=== PATIENT | female | born 1940 | race Caucasian/White ===

== ENCOUNTER 2023-03-29 12:05 | Inpatient (IN) | payer OTHER ==
[~2023-03-29] VITALS: Ht 154.9 cm; Wt 55.3 kg
[2023-03-29 12:05] VITALS: BP_SYST 131; PULSE 76; RESP 18; TEMP 98.2; O2SAT 98
[2023-03-29 13:35] LABS: BASOPHILS # (AUTO) 0.1 K/uL (0.0-0.2); EOSINOPHILS # (AUTO) 0.1 K/uL (0.0-0.4); EOSINOPHILS % (AUTO) 1.7 % (0.0-4.0); HEMATOCRIT 30.9 % (36-48); LYMPHOCYTES # (AUTO) 1.2 K/uL (1.0-5.5); LYMPHOCYTES % (AUTO) 20.4 % (20.5-51.5); MEAN CORPUSCULAR HEMOGLOBIN 25 pg (27-31); MEAN CORPUSCULAR HGB CONC 33 % (32-36); MEAN CORPUSCULAR VOLUME 77 fL (79.0-98.0); MONOCYTES # (AUTO) 0.4 K/uL (0.0-1.0); MONOCYTES % (AUTO) 7.7 % (1.7-9.3); NEUTROPHILS % (AUTO) 69.2 % (40.0-70.0); PLATELET COUNT (AUTO) 274 K/uL (130-430); RED BLOOD CELL COUNT(AUTO) 3.99 MIL/uL (4.2-6.2); RED CELL DISTRIBUTION WIDTH 18.3 % (9.0-15.0); WHITE BLOOD COUNT (AUTO) 5.7 K/uL (4.8-10.8)
[2023-03-29 14:03] LABS: ANION GAP 9 (5-15); CALCIUM 8.8 mg/dL (8.4-11.0); CARBON DIOXIDE 24 mmol/L (23-29); CHLORIDE 102 mmol/L (98-107); CREATININE 0.93 mg/dL (0.55-1.30); GLUCOSE 89 mg/dL (74-106); SODIUM SERUM 135 mmol/L (136-145); UREA NITROGEN, BLOOD 26 mg/dL (8-21)
[2023-03-29 14:09] LABS: ALANINE AMINOTRANSFERASE 19 U/L (12-78); ALBUMIN 2.9 g/dL (3.4-4.8); ASPARTATE AMINOTRANSFERASE 17 U/L (10-37); BILIRUBIN,DIRECT 0.1 mg/dL (0.0-0.3); LIPASE 43 U/L (16-77); TOTAL BILIRUBIN 0.3 mg/dL (0.0-1.0); TOTAL PROTEIN, SERUM 7.1 g/dL (6.4-8.3)
[2023-03-29 14:54] LABS: BILIRUBIN,URINE NEGATIVE (NEGATIVE); BLOOD, URINE 1+ (NEGATIVE); CLARITY/URINE SL CLOUDY (CLEAR); COLOR,URINE YELLOW (YELLOW); GLUCOSE,URINE NEGATIVE (NEGATIVE); KETONES,URINE NEGATIVE (NEGATIVE); LEUKOCYTE ESTERASE ,URINE TRACE (NEGATIVE); NITRITE, URINE POSITIVE (NEGATIVE); PH,URINE 6.5 (5.0-8.0); PROTEIN URINE NEGATIVE (NEGATIVE); UROBILINOGEN,URINE 0.2 (0.2-1.0)
[2023-03-29 15:05] LABS: BACTERIA,URINE MANY /HPF (None Seen); RBC,URINE 0-3 /HPF (0-3)
[2023-03-29] MEDS ORDERED: cefTRIAXone 1 GM VIAL ONE (16:42)
[2023-03-29] MEDS: cefTRIAXone 1 GM in D5W 50 ML IV ONE (16:45)
[2023-03-29] MEDS: D5/0.45 NS 500 ML IV SCH (17:20)
[2023-03-29] MEDS ORDERED: AMLO5TAB92 PO (18:38)
[2023-03-29] MEDS ORDERED: MEMA10TA56 PO (18:38)
[2023-03-29] MEDS ORDERED: ATOR20TA64 PO (18:38)
[2023-03-29] MEDS ORDERED: PANT40TA45 PO (18:38)
[2023-03-29] MEDS ORDERED: SERT25TA77 PO (18:38)
[2023-03-29] MEDS ORDERED: ACETAMINOPHEN 325 MG TABLET PO PRN (22:30)
[2023-03-30] MEDS: MEMANTINE HCL 5 MG TABLET PO SCH (09:08)
[2023-03-30] MEDS: PANTOPRAZOLE SODIUM 40 MG TAB PO SCH (09:08)
[2023-03-30] MEDS: ATORVASTATIN 20 MG TABLET PO SCH (09:09)
[2023-03-30] MEDS: SERTRALINE HCL 50 MG TABLET PO SCH (09:09)
[2023-03-30] MEDS: amLODIPine BESYLATE 5 MG TABLET PO SCH (09:12)
[2023-03-30] MEDS ORDERED: FERR325T30 PO (11:34)
[2023-03-30] MEDS ORDERED: PILO5TAB11 PO (11:34)
[2023-03-30] MEDS ORDERED: ESCI-6 PO (11:34)
[2023-03-30] MEDS: cefTRIAXone 1 GM in D5W 50 ML IV SCH (18:41)
[2023-03-30 21:00] VITALS: BP_SYST 106; PULSE 88; RESP 18; TEMP 97.8; O2SAT 99
[2023-03-30] MEDS: ENOXAPARIN SODIUM 40 MG/0.4 ML SYRINGE SUBCUT SCH (21:05)
[2023-03-31 00:10] VITALS: BP_SYST 115; PULSE 63; RESP 18; TEMP 98.1; O2SAT 96
[2023-03-31 06:58] LABS: BASOPHILS % (AUTO) 0.8 % (0.0-2.0); EOSINOPHILS # (AUTO) 0.2 K/uL (0.0-0.4); HEMOGLOBIN 10.3 g/dL (12.0-16.0); LYMPHOCYTES # (AUTO) 1.3 K/uL (1.0-5.5); LYMPHOCYTES % (AUTO) 21.7 % (20.5-51.5); MEAN CORPUSCULAR HEMOGLOBIN 26 pg (27-31); MEAN CORPUSCULAR HGB CONC 33 % (32-36); MEAN CORPUSCULAR VOLUME 77 fL (79.0-98.0); MONOCYTES # (AUTO) 0.6 K/uL (0.0-1.0); NEUTROPHILS # (AUTO) 3.8 K/uL (1.8-7.7); NEUTROPHILS % (AUTO) 64.5 % (40.0-70.0); PLATELET COUNT (AUTO) 267 K/uL (130-430); RED BLOOD CELL COUNT(AUTO) 4.03 MIL/uL (4.2-6.2); RED CELL DISTRIBUTION WIDTH 18.4 % (9.0-15.0); WHITE BLOOD COUNT (AUTO) 5.9 K/uL (4.8-10.8)
[2023-03-31 07:27] LABS: ANION GAP 9 (5-15); CALCIUM 8.2 mg/dL (8.4-11.0); CARBON DIOXIDE 23 mmol/L (23-29); CHLORIDE 101 mmol/L (98-107); CREATININE 0.98 mg/dL (0.55-1.30); GLUCOSE 95 mg/dL (74-106); POTASSIUM 4.2 mmol/L (3.5-5.1); SODIUM SERUM 133 mmol/L (136-145); UREA NITROGEN, BLOOD 26 mg/dL (8-21)
[2023-03-31 08:00] VITALS: BP_SYST 91; PULSE 80; RESP 16; TEMP 98.1; O2SAT 98; O2SAT 99
[2023-03-31 11:20] VITALS: BP_SYST 91; PULSE 91; RESP 16; TEMP 97.6; O2SAT 93
[2023-03-31 16:09] VITALS: BP_SYST 111; PULSE 82; RESP 16; TEMP 97; O2SAT 96
[2023-03-31 20:00] VITALS: BP_SYST 104; PULSE 85; RESP 16; TEMP 96.9; O2SAT 93; O2SAT 95
[2023-03-31] MEDS: QUEtiapine FUMARATE 25 MG TABLET PO SCH (20:44)
[2023-04-01] VITALS: BP_SYST 120; PULSE 63; RESP 18; TEMP 97.9; O2SAT 94
[2023-04-01] MEDS: DIPHENHYDRAMINE HCL 50 MG CAPSULE PO ONE (00:27)
[2023-04-01 07:46] VITALS: BP_SYST 109; PULSE 76; TEMP 99.3; O2SAT 97
[2023-04-01 11:12] VITALS: BP_SYST 133; PULSE 74; RESP 16; TEMP 97.7; O2SAT 93
[2023-04-01 15:23] VITALS: BP_SYST 94; PULSE 70; RESP 16; TEMP 98; O2SAT 96
[2023-04-01] MEDS: QUEtiapine FUMARATE 25 MG TABLET PO SCH (18:35)
[2023-04-01 20:00] VITALS: BP_SYST 106; PULSE 91; RESP 18; TEMP 98.9; O2SAT 95
[2023-04-02 00:14] VITALS: BP_SYST 118; PULSE 89; RESP 18; TEMP 98.6; O2SAT 98
[2023-04-02 05:54] LABS: BASOPHILS # (AUTO) 0.1 K/uL (0.0-0.2); BASOPHILS % (AUTO) 1.4 % (0.0-2.0); EOSINOPHILS # (AUTO) 0.3 K/uL (0.0-0.4); EOSINOPHILS % (AUTO) 5.6 % (0.0-4.0); HEMATOCRIT 27.7 % (36-48); HEMOGLOBIN 9.1 g/dL (12.0-16.0); LYMPHOCYTES # (AUTO) 1.2 K/uL (1.0-5.5); LYMPHOCYTES % (AUTO) 24.7 % (20.5-51.5); MEAN CORPUSCULAR HEMOGLOBIN 25 pg (27-31); MEAN CORPUSCULAR HGB CONC 33 % (32-36); MEAN CORPUSCULAR VOLUME 76 fL (79.0-98.0); MONOCYTES # (AUTO) 0.4 K/uL (0.0-1.0); MONOCYTES % (AUTO) 9.1 % (1.7-9.3); NEUTROPHILS # (AUTO) 2.8 K/uL (1.8-7.7); NEUTROPHILS % (AUTO) 59.2 % (40.0-70.0); PLATELET COUNT (AUTO) 248 K/uL (130-430); RED BLOOD CELL COUNT(AUTO) 3.65 MIL/uL (4.2-6.2); RED CELL DISTRIBUTION WIDTH 18.1 % (9.0-15.0); WHITE BLOOD COUNT (AUTO) 4.8 K/uL (4.8-10.8)
[2023-04-02 06:10] LABS: ANION GAP 11 (5-15); CALCIUM 7.7 mg/dL (8.4-11.0); CARBON DIOXIDE 21 mmol/L (23-29); CHLORIDE 106 mmol/L (98-107); CREATININE 1.04 mg/dL (0.55-1.30); GLUCOSE 89 mg/dL (74-106); POTASSIUM 4.3 mmol/L (3.5-5.1); SODIUM SERUM 138 mmol/L (136-145); UREA NITROGEN, BLOOD 24 mg/dL (8-21)
[2023-04-02 08:25] VITALS: O2SAT 97
[2023-04-02 08:28] VITALS: BP_SYST 99; PULSE 84; RESP 17; TEMP 98; O2SAT 97
[2023-04-02 11:23] VITALS: BP_SYST 100; PULSE 76; RESP 16; TEMP 98.2; O2SAT 96
[2023-04-02 15:12] VITALS: BP_SYST 100; PULSE 75; RESP 16; TEMP 97.8; O2SAT 98
[2023-04-02 17:29] VITALS: BP_SYST 100; PULSE 75; RESP 16; TEMP 97.8; O2SAT 98
== END 2023-04-02 17:51 | DRG 640 ==
LOC: SED 12:05 → SMU 16:48
PROVIDERS: ADMIT Family Medicine; ATTEND Family Medicine
DX: E86.0 Dehydration (principal); G93.41 Metabolic encephalopathy; N39.0 Urinary tract infection, site not specified; E44.0 Moderate protein-calorie malnutrition; M81.0 Age-related osteoporosis without current pathological fracture; K57.90 Diverticulosis of intestine, part unspecified, without perforation or abscess without bleeding; I10 Essential (primary) hypertension; D64.9 Anemia, unspecified; G30.9 Alzheimer's disease, unspecified; F02.A0 Dementia in other diseases classified elsewhere, mild, without behavioral disturbance, psychotic disturbance, mood disturbance, and anxiety; Z68.23 Body mass index [BMI] 23.0-23.9, adult
CPT/HCPCS: 36415; 70450-TC; 76376; 76770; 80048; 80076; 81000; 81001; 81015; 83690; 83735; 84484; 85025; 87040; 87086; 99285; J0696; J1650; J7060; Q0163